=== PATIENT | male | born 1965 | race Caucasian/White ===

== ENCOUNTER 2017-01-17 08:33 | Day surgery (SDC) | payer OTHER ==
[~2017-01-17] VITALS: Ht 190.5 cm; Wt 145.2 kg
[~2017-01-17 08:33] MED LIST: ALLOPURINOL100 MG PO; AMARYL2 MG PO; AMLODIPINE BESY10 MG PO; ASPIR-LOW81 MG PO; BENICAR40 MG PO; CINNAMON500 MG PO; CLONIDINE HCL0.2 MG PO; FISH OIL 1,0001 EAC7 PO; HYDRALAZINE HCL50 MG PO; HYDROCHLOROTHIA25 MG PO; LANTUS 3 M100 UNITS1 SC; METFORMIN HCL1000 MG PO; METOPROLOL TAR100 MG PO; TRADJENTA5 MG PO; XARELTO20 MG PO
[2017-01-17 09:42] LABS: POINT-OF-CARE METER ID UU13113696
[2017-01-17 11:19] LABS: POINT-OF-CARE METER ID UU13113819
== END 2017-01-17 15:00 | disposition home or self-care (01) ==
LOC: CATH 08:33
PROVIDERS: Internal Medicine Cardiovascular Disease
DX: I25.10 Atherosclerotic heart disease of native coronary artery without angina pectoris (principal); I10 Essential (primary) hypertension; E11.9 Type 2 diabetes mellitus without complications; E66.01 Morbid (severe) obesity due to excess calories; I48.0 Paroxysmal atrial fibrillation; Z79.01 Long term (current) use of anticoagulants
CPT/HCPCS: 82948; C1769; C1887; J1644; J2250; J3010